=== PATIENT | female | born 1980 ===

== ENCOUNTER 2018-11-04 19:55 | Emergency (ER) | payer SELFPAY ==
[2018-11-04 20:00] VITALS: BMI 26.9
[2018-11-04 20:04] VITALS: RESP 18; TEMP 98.4
--- NOTE | 2018-11-04 21:15 | ED PDOC ---
Arrival/HPI <Shamar Barrera - Last Filed: 11/04/18 21:35> - General Historian: Patient - History of Present Illness Narrative History of Present Illness (Text): 11/04/18 21:13 A 38 year old female presents to the emergency department with a complaint of right sided bartholin's cyst. Patient reports discomfort for the past 2 days. She also notes that she has experienced this several times in the past, during her . She states that the last time she had a cyst was 4 months ago. The patient reports that the last time is was incised and drained it was 4 months ago. She is very concerned that her current symptoms will worsen so she decided to be evaluated. The patient denies fevers, chills, headache, dizziness, chest pain, shortness of breath, dyspnea on exertion, cough, abdominal pain, nausea, vomiting, diarrhea, back pain, neck pain, urinary/bowel changes, or any other complaint. PMD: None Time/Duration: Other (2 days) Symptom Onset: Gradual Symptom Course: Unchanged Activities at Onset: Rest, Light Context: Home <Alise Louis - Last Filed: 11/04/18 23:28> - General Chief Complaint: Female Genitourinary Time Seen by Provider: 11/04/18 20:01 Past Medical History - Provider Review Nursing Documentation Reviewed: Yes - Travel History Have you recently traveled outside [place] w/in the past 3 mons?: No - Infectious Disease Hx of Infectious Diseases: None - Psychiatric Hx Substance Use: No - Surgical History Hx Section: Yes (x2) - Anesthesia Hx Anesthesia: Yes Hx Anesthesia Reactions: No Hx Malignant Hyperthermia: No <Alise Louis - Last Filed: 11/04/18 23:28> Family/Social History - Physician Review Nursing Documentation Reviewed: Yes Family/Social History: No Known Family HX Smoking Status: Never Smoked Hx Alcohol Use: No Hx Substance Use: No <Alise Louis - Last Filed: 11/04/18 23:28> Allergies/Home Meds <Shamar Barrera - Last Filed: 11/04/18 21:35> <Alise Louis - Last Filed: 11/04/18 23:28> Allergies/Adverse Reactions: Allergies No Known Allergies Allergy (Verified 11/04/18 20:00) Review of Systems - Physician Review All systems were reviewed & negative as marked: Yes - Review of Systems Constitutional: absent: Fatigue, Fevers Respiratory: absent: SOB, Cough Cardiovascular: absent: Chest Pain, DENT Gastrointestinal: absent: Abdominal Pain, Stool Changes, Diarrhea, Nausea, Vomiting Genitourinary Female: Other (right sided bartholin's cyst). absent: Dysuria, Frequency, Hematuria, Urine Output Changes Musculoskeletal: absent: Back Pain, Neck Pain Skin: absent: Skin Lesions Neurological: absent: Headache, Dizziness Psychiatric: absent: Anxiety, Depression <Alise Louis - Last Filed: 11/04/18 23:28> Physical Exam Vital Signs Temp Pulse Resp BP Pulse Ox 11/04/18 20:04 98.4 F 89 18 107/74 98 <Shamar Barrera - Last Filed: 11/04/18 21:35> Vital Signs Reviewed: Yes Vital Signs Temp Pulse Resp BP Pulse Ox 11/04/18 20:04 98.4 F 89 18 107/74 98 Temperature: Afebrile Blood Pressure: Normal Pulse: Regular Respiratory Rate: Normal Appearance: Positive for: Well-Appearing, Non-Toxic, Comfortable Pain Distress: None Mental Status: Positive for: Alert and Oriented X 3 - Systems Exam Head: Present: Atraumatic, Normocephalic Mouth: Present: Moist Mucous Membranes Neck: Present: Normal Range of Motion Respiratory/Chest: Present: Clear to Auscultation, Good Air Exchange. No: Respiratory Distress, Accessory Muscle Use Cardiovascular: Present: Regular Rate and Rhythm, Normal S1, S2. No: Murmurs Abdomen: No: Tenderness, Distention, Peritoneal Signs Genitourinary/Pelvic Exam: Present: Normal External Genitalia, Other (+ minimal tenderness noted to the right inferior aspect of the labia majora just adjacent to the bartholins gland. no palpable abscess/fluctuance noted. no erythema. ) Back: Present: Normal Inspection Upper Extremity: Present: Normal Inspection. No: Cyanosis, Edema Lower Extremity: Present: Normal Inspection. No: Edema Neurological: Present: GCS=15, Speech Normal Skin: Present: Warm, Dry, Normal Color. No: Rashes Psychiatric: Present: Alert, Oriented x 3 <Alise Louis - Last Filed: 11/04/18 23:28> Medical Decision Making - Medication Orders Current Medication Orders: Discontinued Medications Cephalexin Monohydrate (Keflex) 500 mg PO STAT STA; Protocol Stop: 11/04/18 21:18 Last Admin: 11/04/18 21:34 Dose: 500 mg Ketorolac Tromethamine (Toradol) 60 mg IM STAT STA Stop: 11/04/18 21:19 Last Admin: 11/04/18 21:34 Dose: 60 mg MAR Pain Assessment Document 11/04/18 21:34 CNR (Rec: 11/04/18 21:34 CNR [facility] Pain Reassessment Is this a pain reassessment? No IM Administration Charges Document 11/04/18 21:34 CNR (Rec: 11/04/18 21:34 CNR [facility] Injection Site MAR Injection Site Right Gluteus David Charges for Administration # of IM Administrations 1 Trimethoprim/Sulfamethoxazole (Bactrim Ds Tab) 1 tab PO STAT STA; Protocol Stop: 11/04/18 21:18 Last Admin: 11/04/18 21:34 Dose: 1 tab <Shamar Barrera - Last Filed: 11/04/18 21:35> ED Course and Treatment: 11/04/18 21:25 Impression: A 38 year old female presents to the ED with a complaint of 2 day duration discomfort of a right sided bartholin's cyst. Plan: -- Keflex, Toradol, and Bactrim -- Reassess and disposition Progress Notes: 11/04/18 21:47 Patient nontoxic well-appearing in no distress. I have advised follow-up with a billing spec and primary care physician within the next 2 days. Advised taking medications as prescribed and return immediately if symptoms worsen persist or if new concerning symptoms develop Patient verbalizes understanding of discharge instructions and need for immediate followup. All aspects of this case were discussed the attending of record. Impression: Bartholin's gland cyst Motrin every 6 hours as needed for pain Bactrim 1 tablet twice daily times 7 days Keflex 4 times daily times 7 days Follow-up with a billing spec within the next 2 days Follow-up with primary care physician within the next 2 days Return immediately if symptoms worsen persist or if new concerning symptoms develop <Alise Louis - Last Filed: 11/04/18 23:28> - PA / RECORDS ADMINISTRATOR / Resident Statement MD/DO has reviewed & agrees with the documentation as recorded. <HollyShamar - Last Filed: 11/04/18 21:35> - Scribe Statement The provider has reviewed the documentation as recorded by the Annaleeibe Yajaira Silveira Provider Laurie Attestation: All medical record entries made by the Scribe were at my direction and personally dictated by me. I have reviewed the chart and agree that the record accurately reflects my personal performance of the history, physical exam, medical decision making, and the department course for this patient. I have also personally directed, reviewed, and agree with the discharge instructions and disposition. <MellymayAustenAlise Santiago - Last Filed: 11/04/18 23:28> Disposition/Present on Arrival <HollyShamar - Last Filed: 11/04/18 21:35> - Present on Arrival Any Indicators Present on Arrival: No History of DVT/PE: No History of Uncontrolled Diabetes: No Urinary Catheter: No History of Decub. Ulcer: No History Surgical Site Infection Following: None - Disposition Have Diagnosis and Disposition been Completed?: Yes Disposition Time: 21:30 Patient Plan: Discharge <MellymayAlise Santiago - Last Filed: 11/04/18 23:28> - Disposition Diagnosis: Bartholin gland cyst Disposition: HOME/ ROUTINE Condition: GOOD Discharge Instructions (ExitCare): Bartholin's Gland Cyst Additional Instructions: Motrin every 6 hours as needed for pain Bactrim 1 tablet twice daily times 7 days Keflex 4 times daily times 7 days Follow-up with a billing spec within the next 2 days Follow-up with primary care physician within the next 2 days Return immediately if symptoms worsen persist or if new concerning symptoms develop Prescriptions: Cephalexin [Keflex] 500 mg PO QID #28 capsule Ibuprofen [Motrin] 600 mg PO Q6H PRN #20 tab PRN Reason: pain/fever reduction Sulfamethoxazole/Trimethoprim [Bactrim DS 800 mg-160 mg] 1 tab PO BID #14 tab [facility] [Outside] - Follow up with primary [facility] [Outside] - Follow up with primary Pradip Perez [Medical Doctor] - Follow up with primary Celeste Arenas MD [Medical Doctor] - Follow up with primary Forms: [employer] ([place]ron[place]), WORK NOTE
[2018-11-04] MEDS ORDERED: Tmp-Smz 800 mg-160 mg DS Tab PO STA (21:17)
[2018-11-04 22:16] VITALS: BP 112/62; PULSE 87; O2SAT 97
== END 2018-11-04 22:16 | disposition home or self-care (01) ==
LOC: ED 19:55
DX: N75.0 Cyst of Bartholin's gland (principal)
CPT/HCPCS: 81025; 96372; 99284; J1885